=== PATIENT | male | born 1995 | race American Indian/Alaskan Native ===

== ENCOUNTER 2017-12-04 02:09 | Emergency (ER) | payer SELFPAY ==
[2017-12-04] MEDS ORDERED: ZOFRAN IV ONE (02:22)
[2017-12-04] MEDS ORDERED: SUBLIMAZE IV ONE ×2 (02:22→04:44)
[2017-12-04] MEDS ORDERED: NACL 0.9% 1000 ML 1,000 ML IV ONE (02:22)
[2017-12-04] MEDS ORDERED: BOOSTRIX IM ONE (02:27)
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
[2017-12-04 02:50] LABS: INR 1.01 (0.87-1.13)
[2017-12-04 02:57] LABS: BUN/Creatinine Ratio 9; Blood Urea Nitrogen 12 mg/dL (9-20); Hemolysis Index 18
[2017-12-04] MEDS ORDERED: ceFAZolin 2 GM in NACL 0.9% 100 ML IV ONE (03:00)
[2017-12-04 03:19] LABS: Hematocrit 42.5 % (35.5-45.6); Hemoglobin 14.6 gm/dl (11.8-15.2); Mean Corpuscular Hemoglobin 31 pg (28-32); Mean Corpuscular Volume 91 fl (84-94); Red Blood Count 4.68 M/mm3 (3.65-5.03)
[2017-12-04 03:20] LABS: Basophils % (Auto) 0.6 % (0.0-1.8); Eosinophils # (Auto) 0.1 K/mm3 (0.0-0.4); Eosinophils % (Auto) 1.5 % (0.0-4.3); Lymphocytes # (Auto) 2.8 K/mm3 (1.2-5.4); Lymphocytes % (Auto) 32.4 % (13.4-35.0); Mean Corpuscular HGB Conc 34 % (32-34); Mean Platelet Volume 8.7 fl (6-12); Monocytes # (Auto) 0.7 K/mm3 (0.0-0.8); Monocytes % (Auto) 8.1 % (0.0-7.3); Platelet Count 205 K/mm3 (140-440); Red Cell Distribution Width 12.2 % (13.2-15.2)
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
[2017-12-04 05:07] VITALS: BP 125/80
== END 2017-12-04 05:30 | disposition other institution (70) ==
LOC: ED 02:09
DX: S31.001A Unspecified open wound of lower back and pelvis with penetration into retroperitoneum, initial encounter (principal); F12.10 Cannabis abuse, uncomplicated; X95.9XXA Assault by unspecified firearm discharge, initial encounter; Y93.89 Activity, other specified; Y99.8 Other external cause status; Y92.29 Other specified public building as the place of occurrence of the external cause
CPT/HCPCS: 36415; 74018; 74177; 80048; 85025; 85610; 85730; 86850; 86900; 86901; 90471; 90715; 96365; 96366; 96375; 96376; 99291; J0690; J2405; J3010; J7030; Q9967; 96361